=== PATIENT | male | born 1980 | race Caucasian/White ===

== ENCOUNTER 2017-06-14 22:31 | Emergency (ER) | payer SELFPAY ==
[~2017-06-14] VITALS: Ht 175.3 cm; Wt 91.0 kg
[2017-06-14 22:35] VITALS: BP 148/97
== END 2017-06-15 14:29 | disposition left against medical advice (07) ==
LOC: ER 22:31
DX: R45.89 Other symptoms and signs involving emotional state (principal); Z53.21 Procedure and treatment not carried out due to patient leaving prior to being seen by health care provider